=== PATIENT | female | born 1995 | race Two or more races ===

== ENCOUNTER 2022-11-13 10:51 | Observation (INO) | payer BC, OTHER ==
[2022-11-13 11:38] LABS: Basophils # (auto) 0 10 ^3/uL (0-0.2); Basophils % (auto) 0.3 % (0.0-2.0); Eosinophils # (auto) 0.1 10 ^3/uL (0-0.8); Eosinophils % (auto) 0.8 % (0.0-7.0); Hematocrit 39.1 % (36.0-46.0); Lymphocytes # (auto) 2.7 10 ^3/uL (0.4-5.4); Lymphocytes % (auto) 20.2 % (10.0-50.0); Mean Corpuscular Hemoglobin 30.1 pg (28.0-32.0); Mean Corpuscular Hgb Conc. 33.3 g/dL (32.0-36.0); Mean Corpuscular Volume 90.5 fL (80.0-100.0); Monocytes # (auto) 0.6 10 ^3/uL (0-1.3); Monocytes % (auto) 4.5 % (0.0-12.0); Neutrophils # (auto) 9.9 10 ^3/uL (1.6-8.6); Neutrophils % (auto) 74.2 % (37.0-80.0); Red Blood Cells 4.32 10^6/uL (4.0-5.20); Red Cell Distribution Width 13.5 % (11.8-14.3); White Blood Cell 13.3 10^3/uL (4.4-10.8)
[2022-11-13 11:44] LABS: Albumin 2.4 g/dL (3.4-5.0); Potassium 4.1 mmol/L (3.5-5.1)
[2022-11-13 11:45] LABS: INR 0.85 (0.9-1.15); Partial Thromboplastin Time 27.9 sec (24.6-33.4)
[2022-11-13 11:49] LABS: Bilirubin, Total 0.3 mg/dL (0.2-1.0)
[2022-11-13 12:03] LABS: Protein, Urine 11.9 mg/dL (0.0-11.9)
[2022-11-13 12:16] LABS: Urine Bacteria FEW /hpf (None Seen); Urine Blood Negative /uL (Negative); Urine WBC 2 /hpf (0 - 5)
[2022-11-13 12:25] LABS: Uric Acid 5.7 mg/dL (2.6-6.0)
== END 2022-11-13 13:25 | disposition home or self-care (01) ==
LOC: LDRP 10:51 → UNDOADMOB 10:51 → LDRP 10:59 → UNDODISOB 13:25
PROVIDERS: ADMIT Obstetrics & Gynecology; ATTEND Obstetrics & Gynecology
DX: O13.3 Gestational [pregnancy-induced] hypertension without significant proteinuria, third trimester (principal); O26.893 Other specified pregnancy related conditions, third trimester; R51.9 Headache, unspecified; R42 Dizziness and giddiness; Z3A.33 33 weeks gestation of pregnancy
CPT/HCPCS: 36415; 59025; 76818; 80053; 81001; 81002; 82570; 84156; 84550; 85025; 85610; 85730; 94760; G0378

== ENCOUNTER 2022-11-15 08:50 | Observation (INO) | payer BC ==
[2022-11-15 11:12] LABS: Protein, Urine 7.9 mg/dL (0.0-11.9)
[2022-11-15 11:23] LABS: 24 Hr. Total Protein, Urine 292.3 mg/24 Hr (<149.1)
[2022-11-15 11:28] LABS: Protein, Urine 8.4 mg/dL (0.0-11.9)
== END 2022-11-15 11:13 | disposition home or self-care (01) ==
LOC: LDRP 08:50
PROVIDERS: ADMIT Obstetrics & Gynecology; ATTEND Obstetrics & Gynecology
DX: O26.893 Other specified pregnancy related conditions, third trimester (principal); R51.9 Headache, unspecified; R42 Dizziness and giddiness; O12.03 Gestational edema, third trimester; Z3A.33 33 weeks gestation of pregnancy
CPT/HCPCS: 59025; 81002; 82570; 82948; 82962; 84156; 94760; G0378

== ENCOUNTER 2022-11-22 08:00 | Observation (INO) | payer BC ==
[~2022-11-22] VITALS: Ht 154.9 cm; Wt 113.4 kg
[2022-11-22] MEDS ORDERED: CEPH-510 PO (08:42)
[2022-11-22] MEDS ORDERED: PREN-96 PO (08:42)
[2022-11-22 10:47] LABS: Basophils # (auto) 0.1 10 ^3/uL (0-0.2); Basophils % (auto) 0.6 % (0.0-2.0); Eosinophils # (auto) 0.1 10 ^3/uL (0-0.8); Hematocrit 35.5 % (36.0-46.0); Hemoglobin 12.2 g/dL (12.2-16.2); Lymphocytes # (auto) 2.4 10 ^3/uL (0.4-5.4); Lymphocytes % (auto) 23.2 % (10.0-50.0); Mean Corpuscular Hgb Conc. 34.4 g/dL (32.0-36.0); Mean Corpuscular Volume 90.1 fL (80.0-100.0); Monocytes # (auto) 0.6 10 ^3/uL (0-1.3); Monocytes % (auto) 5.5 % (0.0-12.0); Neutrophils # (auto) 7.3 10 ^3/uL (1.6-8.6); Neutrophils % (auto) 69.7 % (37.0-80.0); Nucleated Red Blood Cells % 0.2 %; Red Blood Cells 3.93 10^6/uL (4.0-5.20); Red Cell Distribution Width 13.4 % (11.8-14.3); White Blood Cell 10.5 10^3/uL (4.4-10.8)
[2022-11-22 10:59] LABS: INR 0.85 (0.9-1.15); Partial Thromboplastin Time 27.9 sec (24.6-33.4)
[2022-11-22 11:07] LABS: Potassium 4.2 mmol/L (3.5-5.1)
[2022-11-22 11:16] LABS: Albumin 2.5 g/dL (3.4-5.0); Bilirubin, Total 0.2 mg/dL (0.2-1.0); Calcium 8.8 mg/dL (8.5-10.1); Total Protein 6.2 g/dL (6.4-8.2)
[2022-11-22 11:18] LABS: Urine Bacteria FEW /hpf (None Seen); Urine Blood Negative /uL (Negative); Urine Specific Gravity 1.005 (1.001-1.035); Urine WBC 1 /hpf (0 - 5)
[2022-11-22 11:55] LABS: Protein, Urine 7.9 mg/dL (0.0-11.9)
[2022-11-22] MEDS ORDERED: ACETAMINOPHEN 325 MG TAB PO PRN (13:00)
[2022-11-22] MEDS ORDERED: BETAMETHASONE ACET (30mg/5ml) 5ml Vial 6mg/ml IM ONE (13:30)
[2022-11-22] MEDS ORDERED: LACTATED RINGER'S 1,000 ML IV ONE (13:30)
[2022-11-22] MEDS ORDERED: LABE100T39 PO (14:23)
[2022-11-22] MEDS ORDERED: LABETALOL HCL 200 MG TAB PO ONE (14:30)
[2022-11-22 16:12] LABS: Alcohol, Urine < 3.0 mg/dL (0-10); Amphetamine Screen, Urine NEGATIVE (NEGATIVE); Barbiturate Scree,Urine NEGATIVE (NEGATIVE); Benzodiazephine Screen, Urine NEGATIVE (NEGATIVE); Cannabinoid Screen, Urine NEGATIVE (NEGATIVE); Cocaine Screen, Urine NEGATIVE (NEGATIVE); Opiate Scree,Urine NEGATIVE (NEGATIVE); Phencyclidine Screen, Urine NEGATIVE (NEGATIVE)
[2022-11-23 07:06] LABS: RPR Non Reactive (Non Reactive)
== END 2022-11-22 17:20 ==
LOC: UNDOADMOB 08:00 → LDRP 08:00
PROVIDERS: ADMIT Obstetrics & Gynecology; ATTEND Obstetrics & Gynecology
DX: O13.3 Gestational [pregnancy-induced] hypertension without significant proteinuria, third trimester (principal); Z20.822 Contact with and (suspected) exposure to COVID-19; O24.419 Gestational diabetes mellitus in pregnancy, unspecified control; O36.5930 Maternal care for other known or suspected poor fetal growth, third trimester, not applicable or unspecified; O26.893 Other specified pregnancy related conditions, third trimester; R51.9 Headache, unspecified; Z3A.35 35 weeks gestation of pregnancy; Z98.891 History of uterine scar from previous surgery; Z79.899 Other long term (current) drug therapy
CPT/HCPCS: 36415; 59025; 76805; 76818; 80053; 80307; 81001; 81002; 82570; 82948; 82962; 84156; 84550; 85025; 85379; 85610; 85730; 86592; 86850; 86900; 86901; 87426; 94760; 96360; 96361; 96372; G0378; J0702

== ENCOUNTER 2022-11-30 01:55 | Emergency (ER) | payer BC ==
[~2022-11-30 01:55] MED LIST: CEPH-510 PO; LABE100T39 PO; PREN-96 PO
== END 2022-11-30 04:10 | disposition left against medical advice (07) ==
LOC: ER 01:55
DX: Z48.01 Encounter for change or removal of surgical wound dressing (principal); Z53.21 Procedure and treatment not carried out due to patient leaving prior to being seen by health care provider